=== PATIENT | female | born 1960 | race Caucasian/White ===

== ENCOUNTER 2022-06-14 21:59 | Inpatient (IN) | payer OTHER ==
[~2022-06-14] VITALS: Ht 157.5 cm; Wt 132.4 kg
[2022-06-14 22:09] VITALS: BP_SYST 165
[2022-06-14] MEDS ORDERED: NITROGLYCERIN 1 INCH (GM) OINT. TD ONE (22:15)
[2022-06-14] MEDS ORDERED: NITROGLYCERIN 1 INCH (GM) OINT. ONE (22:36)
[2022-06-14 23:00] LABS: BASOPHILS # (AUTO) 0.1 K/uL (0.0-0.2); BASOPHILS % (AUTO) 0.9 % (0.0-2.0); EOSINOPHILS # (AUTO) 0.2 K/uL (0.0-0.4); EOSINOPHILS % (AUTO) 2.1 % (0.0-4.0); HEMATOCRIT 35.5 % (36-48); HEMOGLOBIN 11.8 g/dL (12.0-16.0); LYMPHOCYTES # (AUTO) 1.9 K/uL (1.0-5.5); LYMPHOCYTES % (AUTO) 19.7 % (20.5-51.5); MEAN CORPUSCULAR HEMOGLOBIN 29 pg (27-31); MEAN CORPUSCULAR HGB CONC 33 % (32-36); MEAN CORPUSCULAR VOLUME 86 fL (79.0-98.0); MONOCYTES # (AUTO) 0.5 K/uL (0.0-1.0); MONOCYTES % (AUTO) 5.6 % (1.7-9.3); NEUTROPHILS % (AUTO) 71.7 % (40.0-70.0); PLATELET COUNT (AUTO) 244 K/uL (130-430); RED BLOOD CELL COUNT(AUTO) 4.14 MIL/uL (4.2-6.2); WHITE BLOOD COUNT (AUTO) 9.8 K/uL (4.8-10.8)
[2022-06-14 23:15] LABS: ANION GAP 7 (5-15); CALCIUM 10.3 mg/dL (8.4-11.0); CHLORIDE 102 mmol/L (98-107); CREATININE 1.14 mg/dL (0.55-1.30); GLUCOSE 207 mg/dL (70-99); POTASSIUM 4.3 mmol/L (3.5-5.1); UREA NITROGEN, BLOOD 29 mg/dL (8-21)
[2022-06-14 23:21] LABS: INR 0.9 (0.8-1.2); PROTHROMBIN TIME 9.9 SECS (9.5-12.5)
[2022-06-14 23:24] LABS: ALANINE AMINOTRANSFERASE 17 U/L (12-78); ALBUMIN 3.5 g/dL (3.4-4.8); ASPARTATE AMINOTRANSFERASE 16 U/L (10-37); TOTAL BILIRUBIN 0.1 mg/dL (0.0-1.0)
[2022-06-14 23:26] LABS: GFR AFRICAN AMERICAN 63 mL/min (>90)
[2022-06-14] MEDS ORDERED: ALBUTEROL SULFATE 0.083% 2.5 MG/3 ML VIAL.NEB INH ONE (23:30)
[2022-06-15] MEDS ORDERED: TRIA1CAP88 PO (00:36)
[2022-06-15] MEDS ORDERED: LORA10TA7 PO (00:36)
[2022-06-15] MEDS ORDERED: BENA40TA89 PO (00:37)
[2022-06-15] MEDS ORDERED: CITA40TA22 PO (00:38)
[2022-06-15] MEDS ORDERED: NEU300 PO (00:38)
[2022-06-15] MEDS ORDERED: [UNRECOGNIZED DRUG - OTHER] PO (00:40)
[2022-06-15] MEDS ORDERED: [UNRECOGNIZED DRUG - OTHER] PO (00:41)
[2022-06-15] MEDS ORDERED: BEET ROOT PO (00:42)
[2022-06-15] MEDS ORDERED: SAM-E PO (00:43)
[2022-06-15] MEDS ORDERED: [UNRECOGNIZED DRUG - OTHER] PO (00:43)
[2022-06-15] MEDS ORDERED: [UNRECOGNIZED DRUG - CODE] PO (00:44)
[2022-06-15] MEDS ORDERED: NACL 0.9% 1,000 ML IV ONE (01:00)
[2022-06-15] MEDS ORDERED: methylPREDNISolone SOD SUCC/PF 62.5 MG/ML VIAL IVP ONE (01:00)
[2022-06-15 02:29] VITALS: BP_SYST 158
[2022-06-15 08:00] VITALS: BP_SYST 167
[2022-06-15] MEDS ORDERED: METOPROLOL SUCCINATE 25 MG TAB.SR.24H (TOPROL XL) PO ONE (10:15)
[2022-06-15] MEDS ORDERED: CITALOPRAM HYDROBROMIDE 20 MG TABLET PO ONE (11:15)
[2022-06-15] MEDS ORDERED: TRIAMTERENE/HYDROCHLOROTHIAZID 1 CAP CAPSULE (DYAZIDE37.5/25) PO ONE (11:15)
[2022-06-15] MEDS ORDERED: lisinopriL 20 MG TABLET PO ONE (11:15)
[2022-06-15] MEDS ORDERED: LORATADINE 10 MG TABLET PO ONE (11:15)
[2022-06-15] MEDS: INSULIN REGULAR, HUMAN 100 UNITS/ML, 3 ML VIAL (humuLIN R) SUBCUT PRN ×3 (12:17→22:00)
[2022-06-15 13:19] VITALS: BP_SYST 132
[2022-06-15 16:13] VITALS: BP_SYST 154
[2022-06-15] MEDS ORDERED: ACETAMINOPHEN 325 MG TABLET PO PRN ×2 (17:00→17:15)
[2022-06-15] MEDS ORDERED: INSULIN NPH 100 UNITS/ML 10 ML VIAL SUBCUT ONE (17:15)
[2022-06-15 21:09] VITALS: BP_SYST 159
[2022-06-15] MEDS: GABAPENTIN 300 MG CAPSULE PO SCH (21:57)
[2022-06-15] MEDS: INSULIN REGULAR, HUMAN 10 UNITS/0.1 ML, 3 ML VIAL SUBCUT SCH (21:58)
[2022-06-16 05:22] VITALS: BP_SYST 146
[2022-06-16 07:36] LABS: BASOPHILS # (AUTO) 0.1 K/uL (0.0-0.2); BASOPHILS % (AUTO) 0.6 % (0.0-2.0); EOSINOPHILS # (AUTO) 0.1 K/uL (0.0-0.4); EOSINOPHILS % (AUTO) 0.7 % (0.0-4.0); HEMATOCRIT 32.9 % (36-48); HEMOGLOBIN 10.9 g/dL (12.0-16.0); LYMPHOCYTES # (AUTO) 2.4 K/uL (1.0-5.5); MEAN CORPUSCULAR HEMOGLOBIN 29 pg (27-31); MEAN CORPUSCULAR HGB CONC 33 % (32-36); MEAN CORPUSCULAR VOLUME 87 fL (79.0-98.0); MONOCYTES % (AUTO) 6.4 % (1.7-9.3); NEUTROPHILS # (AUTO) 12.3 K/uL (1.8-7.7); NEUTROPHILS % (AUTO) 77.3 % (40.0-70.0); PLATELET COUNT (AUTO) 259 K/uL (130-430); RED BLOOD CELL COUNT(AUTO) 3.81 MIL/uL (4.2-6.2); RED CELL DISTRIBUTION WIDTH 14.2 % (9.0-15.0); WHITE BLOOD COUNT (AUTO) 15.9 K/uL (4.8-10.8)
[2022-06-16 08:27] VITALS: BP_SYST 123
[2022-06-16] MEDS: LORATADINE 10 MG TABLET PO SCH (08:27)
[2022-06-16] MEDS: CITALOPRAM HYDROBROMIDE 20 MG TABLET PO SCH (08:27)
[2022-06-16] MEDS: TRIAMTERENE/HYDROCHLOROTHIAZID 1 CAP CAPSULE (DYAZIDE37.5/25) PO SCH (08:27)
[2022-06-16] MEDS: lisinopriL 20 MG TABLET PO SCH (08:28)
[2022-06-16] MEDS: METOPROLOL SUCCINATE 25 MG TAB.SR.24H (TOPROL XL) PO SCH (08:29)
[2022-06-16 08:37] LABS: ALBUMIN 3.1 g/dL (3.4-4.8); CALCIUM 8.8 mg/dL (8.4-11.0); CREATININE 1.31 mg/dL (0.55-1.30); POTASSIUM 5.2 mmol/L (3.5-5.1)
[2022-06-16] MEDS ORDERED: BEET ROOT PO SCH (09:00)
[2022-06-16] MEDS ORDERED: [UNRECOGNIZED DRUG - OTHER] PO SCH (09:00)
[2022-06-16] MEDS ORDERED: SAM E PO SCH (09:00)
[2022-06-16] MEDS ORDERED: [UNRECOGNIZED DRUG - OTHER] PO SCH (09:00)
[2022-06-16] MEDS ORDERED: [UNRECOGNIZED DRUG - OTHER] PO SCH (09:00)
[2022-06-16] MEDS: INSULIN REGULAR, HUMAN 10 UNITS/0.1 ML, 3 ML VIAL SUBCUT SCH (09:00)
[2022-06-16] MEDS ORDERED: [UNRECOGNIZED DRUG - OTHER] PO SCH (09:00)
[2022-06-16 09:01] LABS: TOTAL BILIRUBIN 0.1 mg/dL (0.0-1.0)
[2022-06-16] MEDS: IPRATROPIUM BROM 0.5 MG/2.5 ML VIAL.NEB (ATROVENT) INH SCH ×4 (11:22→23:00)
[2022-06-16] MEDS: ALBUTEROL SULFATE 0.083% 2.5 MG/3 ML VIAL.NEB INH SCH ×4 (11:22→23:00)
[2022-06-16 12:25] VITALS: BP_SYST 141
[2022-06-16] MEDS: NACL 0.9% 1,000 ML IV SCH ×2 (14:24→20:00)
[2022-06-16] MEDS ORDERED: D5W 1,000 ML IV PRN (16:45)
[2022-06-16] MEDS ORDERED: GLUCOSE (DEXTROSE) ORAL GEL -Adults PO PRN (16:45)
[2022-06-16] MEDS ORDERED: DEXTROSE 50%-WATER 50 ML DISP.SYRIN IVP PRN (16:45)
[2022-06-16 16:50] VITALS: BP_SYST 138
[2022-06-16] MEDS: INSULIN Lispro 100 UNITS/ML, 3 ML VIAL (humaLOG) SUBCUT SCH (16:53)
[2022-06-16] MEDS: INSULIN LISPRO SLIDING SCALE 100 UNITS/ML, 3 ML VIAL (humaLOG) SUBCUT PRN (16:55)
[2022-06-16 20:00] VITALS: BP_SYST 124
[2022-06-16] MEDS: GABAPENTIN 300 MG CAPSULE PO SCH (21:37)
[2022-06-16] MEDS: INSULIN GLARGINE 100 UNITS/ML, 10 ML VIAL SUBCUT SCH (21:55)
[2022-06-17] VITALS: BP_SYST 143
[2022-06-17] MEDS: IPRATROPIUM BROM 0.5 MG/2.5 ML VIAL.NEB (ATROVENT) INH SCH ×3 (03:00→11:12)
[2022-06-17] MEDS: ALBUTEROL SULFATE 0.083% 2.5 MG/3 ML VIAL.NEB INH SCH ×3 (03:00→11:12)
[2022-06-17] MEDS: NACL 0.9% 1,000 ML IV SCH (06:21)
[2022-06-17 07:20] LABS: C-REACTIVE PROTEIN QUANT 0.7 mg/dL (0-0.5); CALCIUM 8.2 mg/dL (8.4-11.0); CREATININE 1.22 mg/dL (0.55-1.30); PHOSPHORUS 3.5 mg/dL (2.7-4.5); POTASSIUM 4.1 mmol/L (3.5-5.1)
[2022-06-17 08:00] VITALS: BP_SYST 127
[2022-06-17 08:38] LABS: ERYTHROCYTE SEDIMENTATION RATE 36 MM/HR (0-20)
[2022-06-17 08:41] LABS: BASOPHILS # (AUTO) 0.1 K/uL (0.0-0.2); BASOPHILS % (AUTO) 0.7 % (0.0-2.0); EOSINOPHILS # (AUTO) 0.2 K/uL (0.0-0.4); EOSINOPHILS % (AUTO) 1.9 % (0.0-4.0); HEMATOCRIT 31.1 % (36-48); HEMOGLOBIN 10.5 g/dL (12.0-16.0); LYMPHOCYTES # (AUTO) 2.9 K/uL (1.0-5.5); LYMPHOCYTES % (AUTO) 29.4 % (20.5-51.5); MEAN CORPUSCULAR HEMOGLOBIN 29 pg (27-31); MEAN CORPUSCULAR HGB CONC 34 % (32-36); MEAN CORPUSCULAR VOLUME 85 fL (79.0-98.0); MONOCYTES # (AUTO) 0.6 K/uL (0.0-1.0); MONOCYTES % (AUTO) 5.9 % (1.7-9.3); NEUTROPHILS # (AUTO) 6.2 K/uL (1.8-7.7); NEUTROPHILS % (AUTO) 62.1 % (40.0-70.0); PLATELET COUNT (AUTO) 217 K/uL (130-430); RED BLOOD CELL COUNT(AUTO) 3.64 MIL/uL (4.2-6.2); RED CELL DISTRIBUTION WIDTH 14.3 % (9.0-15.0)
[2022-06-17] MEDS: LORATADINE 10 MG TABLET PO SCH (08:52)
[2022-06-17] MEDS: CITALOPRAM HYDROBROMIDE 20 MG TABLET PO SCH (08:53)
[2022-06-17] MEDS: lisinopriL 20 MG TABLET PO SCH (08:53)
[2022-06-17] MEDS: METOPROLOL SUCCINATE 25 MG TAB.SR.24H (TOPROL XL) PO SCH (08:53)
[2022-06-17] MEDS: TRIAMTERENE/HYDROCHLOROTHIAZID 1 CAP CAPSULE (DYAZIDE37.5/25) PO SCH (08:54)
[2022-06-17] MEDS: INSULIN GLARGINE 100 UNITS/ML, 10 ML VIAL SUBCUT SCH (08:57)
[2022-06-17] MEDS: INSULIN Lispro 100 UNITS/ML, 3 ML VIAL (humaLOG) SUBCUT SCH (11:21)
[2022-06-17] MEDS: INSULIN LISPRO SLIDING SCALE 100 UNITS/ML, 3 ML VIAL (humaLOG) SUBCUT PRN (11:23)
[2022-06-17] MEDS ORDERED: LEVO-62 PO (11:25)
[2022-06-17] MEDS ORDERED: INSU100V9 SUBCUT (11:25)
[2022-06-17] MEDS ORDERED: INSU100V SUBCUT (11:25)
[2022-06-17] MEDS ORDERED: SSNPH SQ (11:25)
[2022-06-17 11:49] VITALS: BP_SYST 136
[2022-06-17 12:00] VITALS: BP_SYST 136
== END 2022-06-17 13:50 | disposition home or self-care (01) | DRG 720 ==
LOC: EDBD 21:59 → SED 21:59 → STU 06-15 01:02 → SMU 06-16 11:38
PROVIDERS: ADMIT Preventive Medicine Preventive Medicine/Occupational Environmental Medicine; ATTEND Preventive Medicine Preventive Medicine/Occupational Environmental Medicine
DX: A41.9 Sepsis, unspecified organism (principal); J96.00 Acute respiratory failure, unspecified whether with hypoxia or hypercapnia; N17.0 Acute kidney failure with tubular necrosis; J18.9 Pneumonia, unspecified organism; E88.09 Other disorders of plasma-protein metabolism, not elsewhere classified; E83.41 Hypermagnesemia; E83.39 Other disorders of phosphorus metabolism; E11.21 Type 2 diabetes mellitus with diabetic nephropathy; J45.901 Unspecified asthma with (acute) exacerbation; D64.9 Anemia, unspecified; E11.65 Type 2 diabetes mellitus with hyperglycemia; E66.01 Morbid (severe) obesity due to excess calories; G47.33 Obstructive sleep apnea (adult) (pediatric); R79.89 Other specified abnormal findings of blood chemistry; E87.5 Hyperkalemia; E83.52 Hypercalcemia; Z20.822 Contact with and (suspected) exposure to COVID-19; I12.9 Hypertensive chronic kidney disease with stage 1 through stage 4 chronic kidney disease, or unspecified chronic kidney disease; N18.9 Chronic kidney disease, unspecified; E11.22 Type 2 diabetes mellitus with diabetic chronic kidney disease; Z88.0 Allergy status to penicillin; Z79.899 Other long term (current) drug therapy; Z79.51 Long term (current) use of inhaled steroids; Z79.4 Long term (current) use of insulin
CPT/HCPCS: 36415; 71045; 80048; 80053; 82962; 83735; 83880; 84100; 84484; 85025; 85379; 85610-TC; 85651-TC; 85730-TC; 86140; 87040; 93005; 93306; 94640; 94760; 96361; 96374; 99285; G0378; J1815; J1956; J2930; J7030; J7613